=== PATIENT | male | born 1975 | race Caucasian/White ===

== ENCOUNTER 2022-05-08 09:19 | Inpatient (IN) ==
[2022-05-08] MEDS ORDERED: 0.9 % Sodium Chloride 1,000 ML ONE ×2 (09:47→11:01)
[2022-05-08 10:01] LABS: Basophils % 0.3 %; Eosinophils # 0.1 K/mcL (0.0-0.6); Eosinophils % 0.7 %; Immature Granulocytes % 0.2 % (0-4); Lymphocytes # 1.8 K/mcL (0.6-4.6); Mean Corpuscular Hemoglobin 33.7 pg (28.0-33.3); Mean Corpuscular Volume 96.2 fL (83.0-100.0); Mean Platelet Volume 10.1 fL (9.4-12.4); Monocytes # 0.6 K/mcL (0.0-1.3); Monocytes % 6.4 %; Neutrophils # 6.2 K/mcL (1.6-8.9); Platelet Count 352 K/mcL (140-400); Red Blood Count 4.16 M/mcL (4.19-5.50); Red Cell Distribution Width 13.4 % (11.5-14.5); Segmented Neutrophils % 71.4 %; White Blood Count 8.8 K/mcL (4.3-11.1)
[2022-05-08] MEDS ORDERED: Iopamidol - 370 500 ML MLS IVP ONE (10:04)
[2022-05-08 10:22] LABS: BUN/Creatinine Ratio 10 (6-26); Blood Urea Nitrogen 10 mg/dL (6-20); Calcium 9.7 mg/dL (8.6-10.3); Carbon Dioxide 22 mEq/L (23-29); Chloride 98 mEq/L (98-107); Glucose 152 mg/dL (70-105); Osmolality,Calculated 276 (280-300); Potassium 3.2 mEq/L (3.5-5.1); Sodium 132 mEq/L (136-145); Troponin I < 0.03 ng/mL (< 0.04)
[2022-05-08] MEDS ORDERED: 0.9 % Sodium Chloride 1,000 ML IVC ONE ×2 (10:46→11:17)
[2022-05-08] MEDS ORDERED: *HR* Heparin 5,000 UNIT/ML VIAL IVP PRN ×2 (11:04)
[2022-05-08] MEDS ORDERED: *HR* Heparin 5,000 UNIT/ML VIAL IVP ONE (11:04)
[2022-05-08] MEDS ORDERED: Aspirin 325 MG TABLET PO ONE (11:13)
[2022-05-08] MEDS ORDERED: Heparin 25,000UNIT/250ML 1/2NS 25,000 UNIT/250 ML IV.SOLN IVC SCH (11:15)
[2022-05-08] MEDS ORDERED: 0.9 % Sodium Chloride 500 ML IVC ONE (11:17)
[2022-05-08 11:21] LABS: Alanine Aminotransferase 26 Units/L (7-52); Albumin 4.4 g/dL (3.5-5.7); Albumin/Globulin Ratio 1.5 (1.1-2.2); Alkaline Phosphatase 86 Units/L (34-104); Aspartate Amino Transferase 28 Units/L (13-39); Bilirubin,Direct 0.2 mg/dL (0.0-0.2); Bilirubin,Indirect 0.7 mg/dL (0.0-1.0); Bilirubin,Total 0.9 mg/dL (0.3-1.0); Globulin 2.9 g/dL (2.4-3.5); Lipase 6 Units/L (11-82); Total Protein 7.3 g/dL (6.4-8.9)
[2022-05-08 11:24] LABS: Heparin anti-factor XA UFH < 0.04 IU/mL (0.30-0.70)
[2022-05-08 11:26] LABS: Activated Partial Thrombo Time 29.6 Seconds (26.0-36.0)
[2022-05-08] MEDS ORDERED: Albuterol 2.5 MG/3 ML NEBULIZER IH PRN (11:45)
[2022-05-08] MEDS ORDERED: Ondansetron 4 MG/2 ML VIAL IVP PRN (11:45)
[2022-05-08] MEDS ORDERED: Acetaminophen 325 MG TABLET PO PRN (11:45)
[2022-05-08] MEDS ORDERED: Naloxone 0.4 MG/ML INJ IVP PRN (11:45)
[2022-05-08 11:54] LABS: Influenza A PCR Negative (Negative); Influenza B PCR Negative (Negative); Resp. Syncytial Virus PCR Negative (Negative)
[2022-05-08 12:12] LABS: SARS-CoV-2 by PCR (In House) Negative (Negative)
[2022-05-08] MEDS ORDERED: 0.9 % Sodium Chloride 2,000 ML ONE (12:24)
[2022-05-08] MEDS ORDERED: *HR* Heparin 10,000 UNIT/10 ML VIAL ONE (12:24)
[2022-05-08] MEDS ORDERED: Iopamidol - 370 200 ML INFUS..BTL ONE (12:24)
[2022-05-08] MEDS ORDERED: Heparin 1,000 UNITS/500 mL 500 ML ONE ×2 (12:24→12:43)
[2022-05-08] MEDS ORDERED: Nitroglycerin 1,000 MCG/5 ML VIAL IV ONE (12:24)
[2022-05-08] MEDS: Pantoprazole 40 MG VIAL IVP SCH ×2 (12:39→17:48)
[2022-05-08] MEDS ORDERED: *HR* Midazolam HCl 2 MG/2 ML VIAL ONE (13:15)
[2022-05-08] MEDS ORDERED: *HR* FentaNYL (PF) 100 MCG/2 ML VIAL ONE (13:15)
[2022-05-08] MEDS ORDERED: *HR* Atropine Sulfate 1 MG/10 ML SYRINGE ONE (13:33)
[2022-05-08 13:38] LABS: Amphetamine Screen,Urine Negative ng/mL (Cutoff=1000); Barbiturate Screen,Urine Negative ng/mL (Cutoff=200); Benzodiazepines Screen,Urine Negative ng/mL (Cutoff=200); Cannabinoid Screen,Urine Positive ng/mL (Cutoff = 50); Cocaine Screen,Urine Negative ng/mL (Cutoff= 300); Opiate Screen,Urine Negative ng/mL (Cutoff=300); Phencyclidine Screen,Urine Negative ng/mL (Cutoff=25)
[2022-05-08 13:39] LABS: Bilirubin,Urine Negative (Negative); Blood,Urine Trace (Negative); Clarity,Urine Clear (Clear); Color,Urine Colorless (Yellow); Glucose,Urine (UA) Normal (Normal); Ketones,Urine Negative (Negative); Leukocyte Esterase,Urine Negative (Negative); Nitrite,Urine Negative (Negative); Protein,Urine Negative (Neg-Trace); Specific Gravity,Urine 1.024 (1.010-1.025); Squamous Epithelial Cell,Urine Few per hpf (None-Few); Urobilinogen,Urine Normal (Normal); WBC,Urine 0-3 per hpf (0-3)
[2022-05-08 13:41] LABS: Ethanol < 10 mg/dL (Less than 10); Salicylate < 2.5 mg/dL (15.0-30.0)
[2022-05-08] MEDS: Ipratropium/Albuterol Neb 3 ML IH SCH ×4 (14:23→23:10)
[2022-05-08] MEDS ORDERED: Ringers Solution, Lactated 1,000 ML IVC ONE (14:43)
[2022-05-08 15:46] LABS: Estimated Average Glucose 128 mg/dl; Hemoglobin A1C 6.1 %
[2022-05-08 16:14] LABS: BUN/Creatinine Ratio 9 (6-26); Blood Urea Nitrogen 7 mg/dL (6-20); Calcium 7.9 mg/dL (8.6-10.3); Carbon Dioxide 24 mEq/L (23-29); Chloride 106 mEq/L (98-107); Glucose 99 mg/dL (70-105); Osmolality,Calculated 276 (280-300); Potassium 3.9 mEq/L (3.5-5.1); Sodium 134 mEq/L (136-145)
[2022-05-08] MEDS: 0.9 % Sodium Chloride w KCl 20 MEQ/1,000 ML MLS IVC SCH (18:32)
[2022-05-09] MEDS: Ipratropium/Albuterol Neb 3 ML IH SCH ×6 (04:13→23:35)
[2022-05-09] MEDS: 0.9 % Sodium Chloride w KCl 20 MEQ/1,000 ML MLS IVC SCH (04:50)
[2022-05-09] MEDS: Pantoprazole 40 MG VIAL IVP SCH ×2 (06:36→18:19)
[2022-05-09 08:11] LABS: Basophils % 0.3 %; Eosinophils % 0.3 %; Hematocrit 33.1 % (37.5-50.1); Immature Granulocytes % 0.3 % (0-4); Lymphocytes # 1.1 K/mcL (0.6-4.6); Lymphocytes % 16.9 %; Mean Corpuscular HGB Conc 33.5 g/dL (31.6-35.5); Mean Corpuscular Hemoglobin 33.1 pg (28.0-33.3); Mean Corpuscular Volume 98.8 fL (83.0-100.0); Monocytes # 0.4 K/mcL (0.0-1.3); Monocytes % 6.8 %; Neutrophils # 4.9 K/mcL (1.6-8.9); Platelet Count 263 K/mcL (140-400); Red Blood Count 3.35 M/mcL (4.19-5.50); Red Cell Distribution Width 13.5 % (11.5-14.5); Segmented Neutrophils % 75.4 %; White Blood Count 6.5 K/mcL (4.3-11.1)
[2022-05-09 08:24] LABS: Hemoglobin 11.1 g/dL (12.9-16.9)
[2022-05-09 08:29] LABS: Alanine Aminotransferase 19 Units/L (7-52); Albumin 3.6 g/dL (3.5-5.7); Albumin/Globulin Ratio 1.6 (1.1-2.2); Alkaline Phosphatase 70 Units/L (34-104); Aspartate Amino Transferase 17 Units/L (13-39); BUN/Creatinine Ratio 8 (6-26); Bilirubin,Direct 0.1 mg/dL (0.0-0.2); Bilirubin,Indirect 0.6 mg/dL (0.0-1.0); Bilirubin,Total 0.7 mg/dL (0.3-1.0); Blood Urea Nitrogen 6 mg/dL (6-20); Calcium 8.5 mg/dL (8.6-10.3); Carbon Dioxide 21 mEq/L (23-29); Chloride 101 mEq/L (98-107); Globulin 2.2 g/dL (2.4-3.5); Glucose 115 mg/dL (70-105); Magnesium 1.5 mg/dL (1.6-2.6); Osmolality,Calculated 273 (280-300); Phosphorous 2.9 mg/dL (2.7-4.5); Potassium 3.6 mEq/L (3.5-5.1); Sodium 132 mEq/L (136-145); Total Protein 5.8 g/dL (6.4-8.9)
[2022-05-09] MEDS ORDERED: Aspirin Enteric Coated 81 MG Tablet PO SCH (09:00)
[2022-05-09] MEDS: *HR* Heparin 5,000 UNIT/ML VIAL SQ SCH (18:19)
[2022-05-09] MEDS ORDERED: *HR* Propofol 200 MG/20 ML VIAL IVP ONE (18:33)
[2022-05-09] MEDS ORDERED: Lidocaine -MPF 2% 5 ML VIAL ONE (18:34)
[2022-05-10] MEDS: Ipratropium/Albuterol Neb 3 ML IH SCH ×3 (03:31→10:51)
[2022-05-10] MEDS: *HR* Heparin 5,000 UNIT/ML VIAL SQ SCH (05:06)
[2022-05-10] MEDS: Pantoprazole 40 MG VIAL IVP SCH (05:07)
[2022-05-10 06:39] LABS: Basophils % 0.3 %; Eosinophils % 0.3 %; Hematocrit 32.3 % (37.5-50.1); Hemoglobin 10.8 g/dL (12.9-16.9); Immature Granulocytes % 0.5 % (0-4); Lymphocytes # 1.4 K/mcL (0.6-4.6); Lymphocytes % 22.6 %; Mean Corpuscular HGB Conc 33.4 g/dL (31.6-35.5); Mean Corpuscular Hemoglobin 33.2 pg (28.0-33.3); Mean Corpuscular Volume 99.4 fL (83.0-100.0); Mean Platelet Volume 10.4 fL (9.4-12.4); Monocytes # 0.5 K/mcL (0.0-1.3); Neutrophils # 4.2 K/mcL (1.6-8.9); Platelet Count 238 K/mcL (140-400); Red Blood Count 3.25 M/mcL (4.19-5.50); Red Cell Distribution Width 13.7 % (11.5-14.5); Segmented Neutrophils % 68.3 %; White Blood Count 6.1 K/mcL (4.3-11.1)
[2022-05-10 06:59] LABS: BUN/Creatinine Ratio 9 (6-26); Blood Urea Nitrogen 7 mg/dL (6-20); Calcium 8.6 mg/dL (8.6-10.3); Carbon Dioxide 27 mEq/L (23-29); Chloride 104 mEq/L (98-107); Glucose 97 mg/dL (70-105); Osmolality,Calculated 278 (280-300); Phosphorous 3.1 mg/dL (2.7-4.5); Sodium 135 mEq/L (136-145)
[2022-05-10 09:09] VITALS: O2SAT 99
[2022-05-10 13:00] VITALS: BP 108/79; PULSE 74; TEMP 98.2
== END 2022-05-10 13:30 | disposition home or self-care (01) | DRG 191 ==
LOC: EMEROOARM 09:19 → ICNU 11:31 → 3NENU 05-09 14:42
PROVIDERS: ADMIT Pediatrics; ATTEND Pediatrics
PROC: ENDOEBX (2022-05-09 15:00)